=== PATIENT | female | born 1975 | race Caucasian/White ===

== ENCOUNTER → 2017-01-29 | Outpatient (CLI) | payer OTHER ==
[~2017-01-29] MED LIST: BACL10TA PO; CELE10TA PO; FLON1SPR; GLUC1CAP9 PO; LOTR5CAP2 PO; MELO15TA4 PO; OMEG100011 PO; VITA1CAP7 PO; VITATAB11 PO; ZYRT10CA PO
[2017-01-29 12:11] LABS: MEAN CORPUSCULAR HEMOGLOBIN 30.3 pg (27.0-33.0); MEAN CORPUSCULAR HGB CONC 33.2 g/dl (32.0-36.5); MEAN CORPUSCULAR VOLUME 91.1 fl (80.0-96.0); RED CELL DISTRIBUTION WIDTH 12.6 % (11.5-14.5); WHITE BLOOD COUNT 8.5 K/mm3 (4.0-10.0)
[2017-01-29 12:21] LABS: ANION GAP 6 MEQ/L (8-16); BLOOD UREA NITROGEN 15 MG/DL (7-18); CALCIUM LEVEL 9.1 MG/DL (8.5-10.1); CARBON DIOXIDE LEVEL 29 MEQ/L (21-32); CHLORIDE LEVEL 105 MEQ/L (98-107); CREATININE FOR GFR 0.67 MG/DL (0.55-1.02); GLOMERULAR FILTRATION RATE > 60.0 (>58); GLUCOSE, FASTING 86 MG/DL (70-105); SODIUM LEVEL 140 MEQ/L (136-145)
[2017-01-29 12:33] LABS: POTASSIUM SERUM 5.2 MEQ/L (3.5-5.1)
== END ==
LOC: EDSTATUS 09:30 → M ADMPAT 09:31
PROVIDERS: ATTEND Orthopaedic Surgery
DX: Z01.812 Encounter for preprocedural laboratory examination (principal); M17.11 Unilateral primary osteoarthritis, right knee

== ENCOUNTER 2017-02-04 13:00 | Inpatient (IN) | payer OTHER ==
[2017-01-29 10:52] VITALS: BP 120/84
[~2017-02-04] VITALS: Ht 160 cm; Wt 89.8 kg
[2017-02-27] MEDS ORDERED: ceFAZolin 1GM INJ (J0690) As Ordered ONE (07:27)
[2017-02-27] MEDS ORDERED: LR 1,000 ML IV ONE (08:15)
[2017-02-27] MEDS: BENAZEPRIL 5 MG TAB PO SCH (09:00)
[2017-02-27 09:02] LABS: CONTROL LINE UCG INT CTR LINE PRESENT
[2017-02-27] MEDS ORDERED: fentaNYL 100 MCG/2 ML INJECTION (J3010) As Ordered ONE ×2 (09:27→10:28)
[2017-02-27] MEDS ORDERED: MIDAZOLAM INJ 2 MG/2 ML VIAL (J2250) As Ordered ONE ×2 (09:27→10:29)
[2017-02-27 09:49] LABS: MEAN CORPUSCULAR HEMOGLOBIN 31.3 pg (27.0-33.0); MEAN CORPUSCULAR HGB CONC 34.6 g/dl (32.0-36.5); MEAN CORPUSCULAR VOLUME 90.4 fl (80.0-96.0); WHITE BLOOD COUNT 7.6 K/mm3 (4.0-10.0)
[2017-02-27] MEDS: MIDAZOLAM INJ 2 MG/2 ML VIAL (J2250) IV PRN ×3 (09:50→09:59)
[2017-02-27] MEDS: fentaNYL 100 MCG/2 ML INJECTION (J3010) IV PRN ×2 (09:50→10:08)
[2017-02-27] MEDS ORDERED: EPINEPHrine INJ 1 MG/ML 1ML VIAL/AMP As Ordered ONE (10:21)
[2017-02-27] MEDS ORDERED: BUPIVACAINE LIPOSOME/PF 1.3% 20 ML VIAL (13.3MG/ML)(EXPAREL) As Ordered ONE (10:21)
[2017-02-27] MEDS ORDERED: TRANEXAMIC ACID 100 MG/ML 10ML VIAL As Ordered ONE (10:21)
[2017-02-27] MEDS ORDERED: PROPOFOL 500 MG/50 ML VIAL As Ordered ONE ×2 (10:28→12:26)
[2017-02-27] MEDS ORDERED: ePHEDrine SULFATE 25 MG/5 ML(5MG/ML) SYRINGE As Ordered ONE (12:07)
[2017-02-27] MEDS ORDERED: PERCOCET 5MG/325MG TAB PO PRN ×2 (14:30→14:45)
[2017-02-27] MEDS ORDERED: ONDANSETRON 4MG/2ML VIAL (J2405) IV PRN (14:30)
[2017-02-27] MEDS ORDERED: fentaNYL 100 MCG/2 ML INJECTION (J3010) IV PRN (14:30)
[2017-02-27] MEDS ORDERED: LR 1,000 ML IV SCH (14:30)
[2017-02-27] MEDS: KETOROLAC 30 MG/ML VIAL (J1885) IV SCH ×2 (14:40→23:06)
[2017-02-27] MEDS ORDERED: FLEET ENEMA PR PRN (14:45)
[2017-02-27] MEDS ORDERED: ACETAMINOPHEN TAB 650MG DOSE (2X325MG) PO PRN (14:45)
[2017-02-27] MEDS ORDERED: KETOROLAC 30 MG/ML VIAL (J1885) As Ordered ONE (14:45)
[2017-02-27] MEDS ORDERED: ONDANSETRON 4 MG ORAL DISINTEGRATING TAB (S0181) PO PRN (14:45)
--- NOTE | 2017-02-27 15:06 | REP ---
Postoperative evaluation. Comparison: None. There has been total knee prosthetic device placement the femoral and tibial components of which are well seated and well approximated. There is no evidence of an acute fracture. There is expected postoperative soft tissue swelling seen on this two view exam. IMPRESSION: Status post TKR as described above. Signed by Rl Gilmore DO 02/27/2017 04:18 P
[2017-02-27 15:30] VITALS: BP 132/72
[2017-02-27 16:00] VITALS: BP 133/73
[2017-02-27 17:00] VITALS: BP 123/74
[2017-02-27 18:00] VITALS: BP 129/76
[2017-02-27] MEDS: amLODIPine 5 MG TAB PO SCH (19:52)
[2017-02-27 22:00] VITALS: BP 132/80
[2017-02-28 02:00] VITALS: BP 125/82
[2017-02-28 06:00] VITALS: BP 128/82
[2017-02-28] MEDS: PERCOCET 5MG/325MG TAB PO PRN ×4 (06:30→19:41)
[2017-02-28 07:02] LABS: MEAN CORPUSCULAR HEMOGLOBIN 30.4 pg (27.0-33.0); MEAN CORPUSCULAR HGB CONC 32.5 g/dl (32.0-36.5); MEAN CORPUSCULAR VOLUME 93.5 fl (80.0-96.0); RED CELL DISTRIBUTION WIDTH 12.8 % (11.5-14.5); WHITE BLOOD COUNT 17.8 K/mm3 (4.0-10.0)
[2017-02-28 07:10] LABS: INR 1.03
[2017-02-28] MEDS: ENOXAPARIN 40 MG/0.4 ML SYRINGE (J1650) SC SCH (08:49)
[2017-02-28] MEDS: CelecoXIB (CeleBREX) 100 MG CAP PO SCH (08:49)
[2017-02-28] MEDS: amLODIPine 5 MG TAB PO SCH (08:49)
[2017-02-28] MEDS: DOCUSATE SODIUM 100 MG CAP PO SCH (08:49)
[2017-02-28] MEDS: BENAZEPRIL 5 MG TAB PO SCH (08:49)
[2017-02-28 10:00] VITALS: BP 115/69
--- NOTE | 2017-02-28 13:52 | RO ---
DATE OF PROCEDURE: 02/27/2017 PREOPERATIVE DIAGNOSIS: Right knee osteoarthritis (OA). POSTOPERATIVE DIAGNOSIS: Right knee osteoarthritis (OA). PROCEDURE PERFORMED: Right total knee arthroplasty. SURGEON: Filemon Mcclain MD [employer]LE [employer] PROBATION OFFICER: Sally Paul MD SECOND TOOL AND MACHINE MAINTAINER: ROBERT Nino ANESTHESIA: Single shot spinal with single shot adductor canal block. ANTIBIOTICS: 2 gram Ancef given within 1 hour of incision. DEEP VEIN THROMBOSIS (DVT) PROPHYLAXIS: Sequential compression devices (SCD) on the nonoperative extremity. IMPLANTS USED: DePuy SIGMA PFC cruciate retaining, size 3 femur with a size 2.5 fixed bearing tibia, 10 mm polyethelyene. ESTIMATED BLOOD LOSS: 50 mL. MATERIAL SENT TO LAB: None. COMPLICATIONS: None. 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 She had a previous history 5 years ago of right knee arthroscopy for meniscal tear, but no other trauma. No history of infection. No family history of rheumatologic disease. The patient' s radiographs are consistent with right knee osteoarthritis with joint space narrowing, subchondral cyst sclerosis and osteophyte formation. Standing hip to ankle radiographs demonstrated mild varus deformity. Patient attempted nonoperative treatments to include activity modification, corticosteroid injections, therapeutic exercise program, antiinflammatory medications, and failed and continued to have activity limiting pain. I discussed with her the risks, benefits, indications and alternatives of operative versus nonoperative management of osteoarthritis (OA) of the knee and the patient elected to proceed with a right total knee arthroplasty. Informed consent was obtained. INTRAOPERATIVE FINDINGS: There was severe knee osteoarthritis with complete degeneration of cartilage. The PCL was intact allowing for cruciate retaining implant. There were significant osteophytes on the patella, femur and tibia, which were debrided and the knee was well balanced after placement of components. DESCRIPTION OF PROCEDURE: The patient was positively identified in the preop holding area and the surgical site was marked. She was given an adductor canal nerve block by the anesthesia service for postoperative pain control. She was then brought to the operating room where she was given a single shot spinal anesthesia for intraoperative pain control with sedation. The patient was prepped and draped in the usual sterile fashion. She was given 2 grams of IV Ancef within one hour of incision. She was given 1 gram of IV tranexamic acid (TXA) for intraoperative and postoperative hemostasis, just prior to incision. The tourniquet was inflated and I made a 15 cm midline incision over the right knee, dissecting through skin and subcutaneous tissue. The fascial layer above the retinaculum was identified and with curved Vásquez scissors. The retinaculum was then identified as a separate later for later closure, along with the quadriceps tendon. I then performed a medial parapatellar arthrotomy dissecting through the retinaculum and synovium leaving a 2 mm cuff of retinaculum on the patellar side for later repair. I dissected through the medial meniscus and then performed a medial release using Bovie, approximately 2 cm distal to the tibial plateau, then coming circumferentially around the medial tibia preserving the insertion of the MCL. I then used a curved osteotome to complete the medial release. I then released off the proximal aspect of the tibial plateau to Gerdy's tubercle and released the anterior horn of lateral meniscus. The knee was then brought into flexion and the patella was everted. I then placed the drill for the intramedullary guide into the femur for my distal femoral cut. I confirmed that it was within the medullary canal of the femur. The distal femoral intramedullary cutting guide was placed, set to 5 degrees valgus cut and the cutting block was pinned in place. The IM mariya was removed after pinning of the block. A 10 mm cut was taken from the distal femur noting adequate bone cut. At this stage, I removed osteophytes from the medial and lateral aspects of the distal femur. I placed my posterior referencing guide on the femur and the posterior condyles ensuring that there was adequate 3 degrees of external rotation, ensured that the cutting block was in line with the transcondylar axis and perpendicular to Panchito's line. I then measured the femur to a size 3, cruciate retaining. I then pinned the 4-in-[address] and performed anterior, posterior and chamfer cuts, noting smooth symmetric cuts. The anterior chamfer bone block was preserved as a bone plug for the distal femur. I then proceeded with preparation of the tibia. The ACL was removed and the PCL was recessed. A two pronged retractor was placed to protect posterior structures in the tibia and the PCL. The knee was brought forward. The extramedullary tibial guide was placed on the tibia and noted to be parallel to the anatomic axis of the tibia with a 3 degree posterior slope. The guide was inserted. The proximal tibial cut was measured using the heather wings and a slotted proximal tibial cutting guide. The depth was set to a 4 mm cut on the medial side and 10 mm cut on the lateral side. The cutting block was pinned in place. A drop mariya was placed to confirm that there was adequate varus/valgus alignment of the proximal tibia cut. Retractors were placed medially and laterally to protect the collateral ligaments, patellar tendon and popliteus. The proximal tibia cut was made and noted to be adequate. Osteophytes were then removed from the proximal tibia. I then placed a lamina life insurance salesperson with the knee in flexion to check my flexion gap, which was noted to be symmetric bilaterally. I then placed the lamina life insurance salesperson in the medial compartment and excised the lateral meniscus and then removed osteophytes from the posterior aspect of the lateral compartment. I then moved the lamina life insurance salesperson to the lateral compartment, removed the medial meniscus and excess synovium, and removed posterior osteophytes. After all osteophytes were debrided, we then placed the tibial tray with a trial poly and the trial femur onto the tibia to assess rotation and placement of the tibial component. A 10 mm trial poly was noted to achieve adequate gap balancing, corrected her mild flexion contracture, and was stable in both flexion and extension. With full range of motion there was also excellent patellar tracking. The tibial guide was then marked for placement and the tibial trial was set in place. We then proceeded to make the patellar cut. Patella was measured to 24 mm, approximately 8-9 mm was resected, leaving a residual 15 mm. The patella was measured to a 32 mm width, which then corresponded to 8 mm thickness patellar poly. The punch holes were then drilled into the patella, patellar tracking was then checked again with all trials in place confirmed that there was excellent patellar tracking and positioning of components. The femoral lug holes were then drilled. The tibial keyhole was drilled and then all trial implants were removed. The knee was then thoroughly irrigated to remove any bony debris and blood from the trabecular bone for better cement fixation. The cement was mixed and we then placed our final femoral, tibial and patellar components with a final 10 mm polyethylene, removing any excess cement. The knee was then held in extension until the cement dried. Patellar tracking was then checked one last time and balancing was noted to be excellent. At this point, I then placed initial 2 grams of topical TXA into the knee and 20 mL of Exparel expanded in 40 mL of normal saline into the periosteum and surrounding retinaculum. The retinaculum was closed with STRATAFIX barbed suture. After closure of the retinaculum, the tourniquet was let down at 106 minutes. The subcutaneous layer was then closed with interrupted #2-0 Vicryl suture for the fascial layer and a separate layer for the subcutaneous layer. The skin was closed with a running #4-0 Monocryl. A DERMABOND dressing was applied for the skin and sterile dressings were placed over this. This ended the procedure. I was present and scrubbed in for all critical portions of the case. POSTOPERATIVE PLAN: The patient will be weightbearing as tolerated. She will have postoperative x-rays. She will be admitted to the hospital floor for inpatient physical therapy and pain control and will discharge to home when discharge criteria is met. She will begin Lovenox for DVT prophylaxis on POD1. COREEN
[2017-02-28 14:00] VITALS: BP 120/60
[2017-02-28] MEDS ORDERED: diphenhydrAMINE 25 MG CAP PO PRN (19:00)
--- NOTE | 2017-02-28 20:58 | IPNPDOC ---
Date Seen The patient was seen on 02/28/17 @ 0600. Progress Note Proc: R TKA DOS: 27 Feb 2017 S: No acute events o/n. Pt resting comfortably in bed this am w/o complaint. Denies pain or constitutional sx. O: AFVSS RLE: natalio wrap in place, heel elevated; able to flex/ext digits, LTSI about dorsal and plantar aspects of distal foot, BCR in all digits. Labs: H/H 11.9/36.5 A/P: - Will change dressing tomorrow am - Up with PT today; WBAT - Complete post-op Cefazolin today - Encourage IS/Ambulation as tolerated - Prophylaxis: SCDs; LMWH to begin this am VS, I&O, 24H, Fishbone Vital Signs/I&O Vital Signs Date Time Temp Pulse Resp B/P (MAP) Pulse Ox O2 Delivery O2 Flow Rate FiO2 02/28/17 20:11 18 02/28/17 14:00 98.3 67 120/60 (80) 97 Room Air 02/27/17 10:35 2 I&O- Last 24 Hours up to 6 AM 02/28/17 06:00 Intake Total 2420 ml Output Total 1550 ml Balance 870 ml Laboratory Data 24H LABS Laboratory Tests 2 02/28/17 06:46: Prothrombin Time 13.6, Prothromb Time International Ratio 1.03 CBC/BMP Laboratory Tests 02/28/17 06:46 Red Blood Count 3.91 L, Mean Corpuscular Volume 93.5, Mean Corpuscular Hemoglobin 30.4, Mean Corpuscular Hemoglobin Concent 32.5, Red Cell Distribution Width 12.8 CARLOS FALK MD February 28, 2017 20:58
[2017-02-28 22:00] VITALS: BP 159/83
[2017-02-28] MEDS: oxyCODONE 5MG TAB PO SCH (22:26)
[2017-03-01] MEDS: PERCOCET 5MG/325MG TAB PO PRN ×2 (03:06→13:12)
[2017-03-01 06:00] VITALS: BP 138/86
--- NOTE | 2017-03-01 07:50 | IPNPDOC ---
Date Seen The patient was seen on 03/01/17. Progress Note Proc: R TKA DOS: 27 Feb 2017 S: No acute events o/n. Pt resting comfortably in bed this am w/o complaint. Denies pain or constitutional sx. Patient required one rescue dose of OxyIR overnight, but otherwise pain well controlled. Ambulated with PT yesterday. O: AFVSS RLE: dressing taken down. wound c/d/i. No surrounding erythema or induration. Passive knee ROM 0-50 degrees. Heel elevated; able to flex/ext digits, sensation intact to light touch about dorsal and plantar aspects of distal foot , BCR in all digits. A/P: - Up with PT today; WBAT - May discharge to home when cleared by PT - Encourage IS/Ambulation as tolerated - Prophylaxis: SCDs; LMWH VS, I&O, 24H, Fishbone Vital Signs/I&O Vital Signs Date Time Temp Pulse Resp B/P (MAP) Pulse Ox O2 Delivery O2 Flow Rate FiO2 03/01/17 03:36 18 02/28/17 22:00 98.1 55 159/83 (108) 98 Room Air 02/27/17 10:35 2 I&O- Last 24 Hours up to 6 AM 03/01/17 06:00 Intake Total 1440 ml Balance 1440 ml CARLOS FALK MD March 01, 2017 07:50
[2017-03-01] MEDS: oxyCODONE 5MG TAB PO SCH (08:37)
[2017-03-01] MEDS: ENOXAPARIN 40 MG/0.4 ML SYRINGE (J1650) SC SCH (10:04)
[2017-03-01] MEDS: CelecoXIB (CeleBREX) 100 MG CAP PO SCH (10:04)
[2017-03-01 10:05] VITALS: BP 126/78
[2017-03-01] MEDS: DOCUSATE SODIUM 100 MG CAP PO SCH (10:05)
[2017-03-01] MEDS: amLODIPine 5 MG TAB PO SCH (10:05)
[2017-03-01] MEDS: BENAZEPRIL 5 MG TAB PO SCH (10:05)
== END 2017-03-01 16:09 | disposition home or self-care (01) | DRG 470 ==
LOC: M OR 02-27 07:54 → M MS5PR 02-27 15:15
PROVIDERS: ADMIT Orthopaedic Surgery; ATTEND Orthopaedic Surgery
PROC: 0SRC0J9 Replacement of Right Knee Joint with Synthetic Substitute, Cemented, Open Approach (ICD-10-PCS; principal; 2017-02-27 09:50)
DX: M17.11 Unilateral primary osteoarthritis, right knee (principal); I10 Essential (primary) hypertension; Z79.899 Other long term (current) drug therapy

== ENCOUNTER → 2018-10-10 | Outpatient (REF) | payer OTHER ==
[~2018-10-10] MED LIST changes: -BACL10TA PO; +BACL1TAB8 PO; +MELO15TA28 PO; -MELO15TA4 PO
== END ==
LOC: M LAB REF 14:07
PROVIDERS: ATTEND Family Medicine
DX: N63.0 Unspecified lump in unspecified breast (principal)

== ENCOUNTER → 2019-10-19 | Outpatient (CLI) | payer OTHER ==
[~2019-10-19] MED LIST changes: +D-3-50003 PO; -VITA1CAP7 PO
--- NOTE | 2019-10-19 19:47 | REP ---
Clinical: Right upper quadrant pain. Technique: Single supine view of the abdomen and pelvis. Findings: No evidence for bowel obstruction or perforation. Fecal stasis cannot be excluded. No organomegaly. Phleboliths noted in the pelvis. Skeletal structures are intact. Impression: Nonspecific bowel gas pattern. Electronically Signed by Murphy Leroy MD 10/19/2019 07:39 P
== END ==
LOC: M LRY 18:56
PROVIDERS: ATTEND Physician Assistant
DX: R10.11 Right upper quadrant pain (principal)
CPT/HCPCS: 74018; 81002; 81025; 96372; G0463; J1885

== ENCOUNTER → 2019-12-04 | Outpatient (CLI) | payer OTHER ==
[~2019-12-04] MED LIST changes: +CETI5SOL3 PO; +CYMB60CA3 PO; +GABA-1171 PO; +PROP60TA14 PO; +VITA100054 PO; +VITATAB73 PO
--- NOTE | 2019-12-04 14:02 | ECGEPIP ---
[facility] Test Date: 2019-12-04 Pat Name: CRIS PIZARRO Department: Room: - Gender: Female Spanish Instructor: LAW : 1975 Requested By: GEORGI Bajwa Order Number: [id number] Reading MD: Ivonne Evans Measurements Intervals [place] Rate: 61 P: 32 MD: 186 QRS: 23 QRSD: 87 T: 44 QT: 416 QTc: 419 Interpretive Statements SINUS RHYTHM NONSPECIFIC T-WAVE ABNORMALITY NO PRIOR Electronically Signed on 12-04-2019 14:02:19 EST by Ivonne Evans
== END ==
LOC: M EKG 12:56
PROVIDERS: ATTEND Anesthesiology
DX: R03.0 Elevated blood-pressure reading, without diagnosis of hypertension (principal)

== ENCOUNTER 2019-12-14 09:18 | Day surgery (SDC) | payer OTHER ==
[~2019-12-14] VITALS: Ht 160 cm; Wt 98.8 kg
[~2019-12-14 09:18] MED LIST changes: +LR 1,000 ML IV ONE
[2019-12-14] MEDS ORDERED: fentaNYL 250 MCG/5 ML INJECTION (J3010) As Ordered ONE (10:34)
[2019-12-14] MEDS ORDERED: LIDOCAINE 2% INJ 100 MG/5 ML SDV (FOR ANES.) As Ordered ONE (10:34)
[2019-12-14] MEDS ORDERED: ROCURONIUM BROMIDE 50 MG/5 ML VIAL As Ordered ONE (10:34)
[2019-12-14] MEDS ORDERED: propofoL 200 MG/20 ML VIAL As Ordered ONE (10:34)
[2019-12-14] MEDS ORDERED: MIDAZOLAM INJ 2 MG/2 ML VIAL (J2250) As Ordered ONE (10:34)
[2019-12-14] MEDS ORDERED: OXYMETAZOLINE NASAL SPRAY (AFRIN) As Ordered ONE (11:30)
[2019-12-14] MEDS ORDERED: METHYLENE BLUE 0.5% (5MG/ML) 10 ML AMP (PROVAYBLUE)(Q9968 PER 1MG) As Ordered ONE (11:30)
[2019-12-14] MEDS ORDERED: LIDOCAINE W/EPINEPHRINE 1% 20ML VIAL As Ordered ONE (11:30)
[2019-12-14] MEDS ORDERED: dexameTHASONE 4 MG/ML 1ML VIAL (J1100) As Ordered ONE (12:41)
[2019-12-14] MEDS ORDERED: SUCCINYLCHOLINE 100 MG/5 ML SYRINGE (J0330) As Ordered ONE (12:46)
[2019-12-14] MEDS ORDERED: ACETAMINOPHEN 1000MG 100ML IV BTL (OFIRMEV) (J0131 PER 10MG) As Ordered ONE (13:13)
[2019-12-14] MEDS ORDERED: ONDANSETRON 4MG/2ML VIAL (J2405) As Ordered ONE (13:13)
[2019-12-14] MEDS ORDERED: KETOROLAC 60 MG/2 ML VIAL (J1885) As Ordered ONE (13:13)
[2019-12-14] MEDS ORDERED: SUGAMMADEX SODIUM 500 MG/5 ML VIAL (BRIDION) As Ordered ONE (13:30)
[2019-12-14] MEDS ORDERED: ONDANSETRON 4MG/2ML VIAL (J2405) IV PRN (14:15)
[2019-12-14] MEDS ORDERED: fentaNYL 100 MCG/2 ML INJECTION (J3010) IV PRN (14:15)
[2019-12-14] MEDS ORDERED: LR 1,000 ML IV SCH (14:15)
[2019-12-14 14:42] VITALS: BP 155/93
[2019-12-14] MEDS ORDERED: LABETALOL HCL 100 MG/20 ML VIAL IV PRN (14:45)
[2019-12-14] MEDS ORDERED: PERCOCET 5MG/325MG TAB PO PRN (15:16)
[2019-12-14 16:15] VITALS: BP 135/75
== END 2019-12-14 16:23 | disposition home or self-care (01) ==
LOC: M SDC 09:18
PROVIDERS: ATTEND Specialist
DX: J34.2 Deviated nasal septum (principal); J31.0 Chronic rhinitis; I10 Essential (primary) hypertension; F43.10 Post-traumatic stress disorder, unspecified; F41.9 Anxiety disorder, unspecified; F32.9 Major depressive disorder, single episode, unspecified; Z79.899 Other long term (current) drug therapy
CPT/HCPCS: 30140; 30520; 81025; 88300; J0131; J0330; J1100; J1885; J2250; J2405; J3010; Q9968